=== PATIENT | female | born 1950 | race Two or more races ===

== ENCOUNTER 2022-08-10 09:00 | Emergency (ER) | payer OTHER ==
[~2022-08-10] VITALS: Ht 157.5 cm; Wt 77.6 kg
[2022-08-10] MEDS ORDERED: GLIMEPIRIDE2 MG (09:26)
[2022-08-10] MEDS ORDERED: JANUMET 50-1,01 EACH PO (09:26)
[2022-08-10] MEDS ORDERED: ACTOS15 MG (09:27)
[2022-08-10] MEDS ORDERED: DICLOFENAC POTA50 MG PO (10:53)
== END 2022-08-10 11:18 ==
LOC: ER 09:00
DX: S42.301A Unspecified fracture of shaft of humerus, right arm, initial encounter for closed fracture (principal); W18.39XA Other fall on same level, initial encounter; Y93.89 Activity, other specified; Y92.018 Other place in single-family (private) house as the place of occurrence of the external cause; E11.9 Type 2 diabetes mellitus without complications; Z79.84 Long term (current) use of oral hypoglycemic drugs